=== PATIENT | male | born 1990 | race Caucasian/White ===

== ENCOUNTER 2018-01-13 11:33 | Emergency (ER) | payer OTHER ==
[~2018-01-13] VITALS: Ht 185.4 cm; Wt 109.1 kg
[~2018-01-13 11:33] MED LIST: CILOXAN .3% EY2.5 ML OP; MOTRIN 200200 MG/TAB PO; NORCO 325 MG-51 TAB PO; RELAFEN 50500 MG/TAB PO
[2018-01-13 11:37] VITALS: TEMP 97.5
[2018-01-13] MEDS ORDERED: NORCO 325 MG-51 TAB PO (14:16)
[2018-01-13 15:25] VITALS: BP 133/84; PULSE 78
== END 2018-01-13 15:38 | disposition home or self-care (01) ==
LOC: COL.ER 11:33
DX: S51.012A Laceration without foreign body of left elbow, initial encounter (principal); S80.12XA Contusion of left lower leg, initial encounter; R10.12 Left upper quadrant pain; V89.2XXA Person injured in unspecified motor-vehicle accident, traffic, initial encounter
CPT/HCPCS: J1170; J2405; J7120; Q9967

== ENCOUNTER 2018-01-15 11:27 | Emergency (ER) | payer OTHER ==
[~2018-01-15] VITALS: Ht 185.4 cm; Wt 109.1 kg
[2018-01-15 11:36] VITALS: BP 136/68; TEMP 97.6
[2018-01-15 13:24] VITALS: PULSE 79
== END 2018-01-15 13:26 | disposition home or self-care (01) ==
LOC: COL.ER 11:27
DX: S89.91XA Unspecified injury of right lower leg, initial encounter (principal); V43.62XA Car passenger injured in collision with other type car in traffic accident, initial encounter
CPT/HCPCS: L1846

== ENCOUNTER → 2018-05-13 | Outpatient (CLI) | payer BC ==
[2018-05-13 17:40] LABS: CHOLESTEROL RISK RATIO 4.9
== END ==
LOC: ZCOL.LAB 16:24
PROVIDERS: Family Medicine
DX: Z13.1 Encounter for screening for diabetes mellitus (principal); Z13.220 Encounter for screening for lipoid disorders

== ENCOUNTER → 2018-08-24 | Outpatient (CLI) | payer BC | LOC: ZCOL.LAB 16:26 | DX: J02.9 Acute pharyngitis, unspecified (principal) ==